=== PATIENT | female | born 1980 ===

== ENCOUNTER → 2019-08-18 | Outpatient (CLI) | payer BC ==
[~2019-08-18] MED LIST: HYDACE5 PO; IBUP800; LABE100 PO; OXYACE5T
== END | disposition home or self-care (01) ==
LOC: LAB SHORT 09:41 → PLD 09:41
DX: N93.8 Other specified abnormal uterine and vaginal bleeding (principal)
CPT/HCPCS: 88305

== ENCOUNTER 2019-10-01 06:06 | Day surgery (SDC) | payer BC ==
[~2019-10-01] VITALS: Ht 160 cm; Wt 69.5 kg
[~2019-10-01 06:06] MED LIST changes: +ALBU90OI INH; +ALPR.5 PO; +BUPR150ER PO; +Buspirone HCl10 MG PO; +FERSU300 PO; +Flonase 0.05% N16 GM; +IBUP600 PO; +ONDA4 PO; +Percocet 5-3251 EACH PO; +Prozac40 MG PO
--- NOTE | 2019-10-01 06:45 | NUR ---
Ambulatory in Day Surgery History, Chart, Medications and Allergies reviewed before start of procedure. Lungs clear T/O to Auscultation. Patient confirms NPO status and agrees with scheduled surgery. Pre-Op teaching done. Pt verbalizes understanding.
--- NOTE | 2019-10-01 13:50 | NUR ---
DISCHARGE SUMMARY PT A/O X4, VSS, PAIN MANAGED PER EMAR, TOLERATING PO, VOIDING WELL. LEAVING FLOOR TO GO HOME WITH W/ DISCHARGE PACKET, PERSONAL BELONGINGS. IV DC'D.
== END 2019-10-01 14:30 | disposition home or self-care (01) ==
LOC: ORSCMMR 06:06 → ORD 07:30 → ORSCMMR 07:30 → SURS 10:37 → ORSCMMR 14:30
PROVIDERS: Obstetrics & Gynecology
PROC: 0UT7FZZ Resection of Bilateral Fallopian Tubes, Via Natural or Artificial Opening With Percutaneous Endoscopic Assistance (ICD-10-PCS; principal; 2019-10-01 07:30)
PROC: 8E0Y3CZ Robotic Assisted Procedure of Lower Extremity, Percutaneous Approach (ICD-10-PCS; principal; 2019-10-01 07:30)
PROC: 0UT9FZZ Resection of Uterus, Via Natural or Artificial Opening With Percutaneous Endoscopic Assistance (ICD-10-PCS; principal; 2019-10-01 07:30)
DX: N92.1 Excessive and frequent menstruation with irregular cycle (principal); N93.9 Abnormal uterine and vaginal bleeding, unspecified; N94.6 Dysmenorrhea, unspecified; D64.9 Anemia, unspecified; F41.8 Other specified anxiety disorders; J45.909 Unspecified asthma, uncomplicated; Z79.899 Other long term (current) drug therapy
CPT/HCPCS: 58552; S2900; 36415; 86850; 86900; 86901; 88307; J0690; J1100; J1885; J2250; J2370; J2405; J2704; J3010; J7120

== ENCOUNTER → 2020-12-28 | Outpatient (CLI) | payer BC ==
[2020-12-30 17:09] LABS: CORONAVIRUS (COVID19) CSH-NRL Negative (Negative)
== END ==
LOC: LAB SHORT 14:25 → LAB 14:25
PROVIDERS: Family Medicine
DX: Z01.812 Encounter for preprocedural laboratory examination (principal); Z20.822 Contact with and (suspected) exposure to COVID-19
CPT/HCPCS: U0003

== ENCOUNTER → 2021-01-26 | Outpatient (CLI) | payer BC | END | disposition home or self-care (01) | LOC: LAB SHORT 11:17 → LAB 11:17 | DX: D22.62 Melanocytic nevi of left upper limb, including shoulder (principal); L30.8 Other specified dermatitis | CPT/HCPCS: 88305; 88312 ==